=== PATIENT | male | born 1955 | race Caucasian/White ===

== ENCOUNTER 2017-08-19 05:00 | Emergency (ER) | payer MEDICAID ==
--- NOTE | 2017-08-19 05:06 | ER Report ---
History and Physical Time Seen By MD: 05:06 Hx. of Stated Complaint: Pt reporting a cough and left ear pain. HPI/ROS CHIEF COMPLAINT: cough and ear pain HISTORY OF PRESENT ILLNESS: This is a 62 year old male. He and his have been sick for about 7-8 weeks now. They have had cough and fevers. He was seen last week at an urgent care, and diagnosed with an ear infection. He has been on Cephalexin, but not improving. The cough seems worse and he is getting short of breath at times with chest tightness as well. Has no nausea or vomiting. Sore throat. Ear pain in left ear. No ear drainage. Allergies: Coded Allergies: No Known Drug Allergies (Unverified , 08/19/17) Home Meds Active Scripts Benzonatate 100 Mg Cap (TESSALON PERLE 100 MG CAP) 100 Mg Capsule, 100 MG PO TID Y for COUGH, #20 CAP 0 Refills Prov:OTIS PABLO MD 08/19/17 Guaifenesin/Codeine (GUAIFENESIN-CODEINE SYRUP) 5 Ml Syrp, 1 TSP PO Q4H Y for COUGH, #120 ML 0 Refills Prov:OTIS PABLO MD 08/19/17 Amoxicillin/Pot Clav 875-125 Mg Tab (AUGMENTIN 875-125 TABLET) 1 Each Tablet, 1 TAB PO Q12H, #20 TAB 0 Refills Prov:OTIS PABLO MD 08/19/17 Reviewed Nurses Notes: Yes Constitutional Vital Sign - Last 24 Hours 08/19/17 08/19/17 08/19/17 08/19/17 05:00 05:02 05:15 05:20 Temp 98.4 Pulse 96 99 100 101 Resp 20 B/P (MAP) 119/76 Pulse Ox 93 92 91 93 O2 Delivery Room Air 08/19/17 08/19/17 08/19/17 08/19/17 05:35 05:40 05:43 06:00 Pulse 100 94 B/P (MAP) 96/69 (78) 121/73 (89) Pulse Ox 91 Physical Exam General Appearance: Alert, no acute distress. Constant coughing during exam. Eyes: Pupils equal and round no injection. ENT: Normal oral mucosa. Moist mucous membranes. Posterior oropharynx is very erythematous with purulent post nasal drainage, large amount. TM on both sides show retraction. Some redness of the left TM. Neck: Neck is supple and non tender. Respiratory: Chest is non tender, lungs with rhonchi, no wheezing or rales. Cardiac: regular rate and rhythm Gastrointestinal: Abdomen is soft and non tender, no masses, bowel sounds normal. Musculoskeletal: Extremities have full range of motion. Skin: No rashes or lesions. DIFFERENTIAL DIAGNOSIS: After history and physical exam differential diagnosis was considered for cough and signs of likely secondary bacterial infection, sinusitis. Will rule out influenza and pulmonary infectious process. Medical Decision Making Data Points Laboratory Hematology Test 08/19/17 05:20 Influenza Virus Type A (PCR) Negative (NEGATIVE) Influenza Virus Type B (PCR) Negative (NEGATIVE) Chemistry Test 08/19/17 05:20 Influenza Virus Type A (PCR) Negative (NEGATIVE) Influenza Virus Type B (PCR) Negative (NEGATIVE) EKG/Imaging Imaging CHEST PA AND LAT COMPARISONS: None. ADDITIONAL PERTINENT HISTORY: Cough and congestion FINDINGS: Cardiomediastinal silhouette: Negative. Pulmonary vasculature: Negative. Lung cagle: Minimal bibasilar regions of scarring. Otherwise negative Pleural spaces: Negative. Osseous structures: Minimal spondylitic change involving the thoracic spine. Surrounding soft tissues: Negative. IMPRESSION: No evidence of acute cardiopulmonary disease. Report Dictated By: Alan Jack MD at 08/19/2017 5:41 AM ED Course/Re-evaluation ED Course Influenza negative. Chest x-ray negative for pneumonia. Again, based on timing and symptoms, suggestive of sinusitis. Will treat with Augmentin. Cough medications: benzonatate and guaifenesin with codeine. Decision to Disposition Date: Aug 19, 2017 Decision to Disposition Time: 06:02 Depart Departure Latest Vital Signs Vital Signs Date Time Temp Pulse Resp B/P (MAP) Pulse Ox O2 Delivery O2 Flow Rate FiO2 08/19/17 06:00 121/73 (89) 08/19/17 05:40 94 91 08/19/17 05:02 98.4 20 Room Air Impression: Primary Impression: Sinusitis Condition: Condition Unchanged Disposition: HOME OR SELF-CARE New Scripts Benzonatate 100 Mg Cap (TESSALON PERLE 100 MG CAP) 100 Mg Capsule 100 MG PO TID Y for COUGH, #20 CAP 0 Refills Prov: OTIS PABLO MD 08/19/17 Guaifenesin/Codeine (GUAIFENESIN-CODEINE SYRUP) 5 Ml Syrp 1 TSP PO Q4H Y for COUGH, #120 ML 0 Refills Prov: OTIS PABLO MD 08/19/17 Amoxicillin/Pot Clav 875-125 Mg Tab (AUGMENTIN 875-125 TABLET) 1 Each Tablet 1 TAB PO Q12H, #20 TAB 0 Refills Prov: OTIS PABLO MD 08/19/17 Patient Instructions: Sinusitis (ED) Additional Instructions: Take the antibiotic Augmentin 875/125 twice a day for 10 days. For cough, you can try Guaifenesin with Codeine, 1 teaspoon every 4 hours as needed. You can also try Benzonatate 100mg capsuled, one every 8 hours as needed. Rest and increase fluid intake. Problem Qualifiers Primary Impression: Sinusitis Sinusitis location: unspecified location Chronicity: acute Recurrence: non -recurrent Qualified Codes: J01.90 - Acute sinusitis, unspecified OTIS PABLO MD Aug 19, 2017 05:06
--- NOTE | 2017-08-19 05:48 | RADIOLOGY IMAGING REPORT ---
FACILITY: [facility] PATIENT NAME: Ronnie Ag : 1955 MR: [id number] V: [id number] EXAM DATE: ORDERING PHYSICIAN: OTIS PABLO TECHNOLOGIST: Location: [facility] [place] Patient: Ronnie Ag : 1955 Visit/Account:[id number] Date of Sevice: 08/19/2017 CHEST PA AND LAT COMPARISONS: None. ADDITIONAL PERTINENT HISTORY: Cough and congestion FINDINGS: Cardiomediastinal silhouette: Negative. Pulmonary vasculature: Negative. Lung cagle: Minimal bibasilar regions of scarring. Otherwise negative Pleural spaces: Negative. Osseous structures: Minimal spondylitic change involving the thoracic spine. Surrounding soft tissues: Negative. IMPRESSION: No evidence of acute cardiopulmonary disease. Report Dictated By: Alan Jack MD at 08/19/2017 5:41 AM Report E-Signed By: Alan Jack MD at 08/19/2017 5:43 AM WSN:[id number]
[2017-08-19 06:00] VITALS: BP 121/73
[2017-08-19] MEDS ORDERED: ROBC PO (06:04)
[2017-08-19] MEDS ORDERED: AMOX-559 PO (06:04)
[2017-08-19] MEDS ORDERED: BENZ100C4 PO (06:04)
[2017-08-19] MEDS ORDERED: AMOX/CLAV 875 MG TAB PO ONE (06:10)
[2017-08-19] MEDS ORDERED: BENZONATATE 100 MG CAP PO ONE (06:10)
[2017-08-19] MEDS ORDERED: guaiFENesin/CODEINE 5 ML UDBTL PO ONE (06:10)
== END 2017-08-19 06:29 | disposition home or self-care (01) ==
LOC: ER 05:16
DX: J01.90 Acute sinusitis, unspecified (principal)
CPT/HCPCS: 71046; 87502; 99284

== ENCOUNTER → 2017-08-19 | Outpatient (CLI) | payer MEDICAID ==
[~2017-08-19] MED LIST: AMOX-559 PO; BENZ100C4 PO; ROBC PO
== END ==
LOC: AMB 04:37
PROVIDERS: ATTEND Nurse Practitioner
DX: H92.02 Otalgia, left ear (principal); R05 Cough
CPT/HCPCS: A0425; A0429